=== PATIENT | male | born 1985 | race Caucasian/White ===

== ENCOUNTER 2018-02-15 12:23 | Emergency (ER) | payer MEDICAID ==
[2018-02-15 12:33] VITALS: BP 114/74
--- NOTE | 2018-02-15 12:51 | EDPHY ---
H & P Stated Complaint: Acute on Chronic Back Pain Source: Patient Exam Limitations: No limitations - Personal History Current Tetanus/Diphtheria Vaccine: No Current Tetanus Diphtheria and Acellular Pertussis (TDAP): No - Medical/Surgical History Hx Asthma: No Hx Chronic Respiratory Disease: No Hx Diabetes: No Hx Cardiac Disease: No Hx Renal Disease: No Hx Cirrhosis: No Hx Alcoholism: No Hx HIV/AIDS: No Hx Splenectomy or Spleen Trauma: No Other PMH: depression/psych, schizophrenia - Social History Smoking Status: Current every day smoker Time Seen by Provider: 02/15/18 12:51 HPI/ROS: HPI: This is a 32-year-old male who presents with Chief Complaint: Acute on chronic back pain Location: Mid to lower back Quality: Pain Duration: Worse last night and this morning Signs and Symptoms: No bleeding, no radiation, no numbness, no weakness, no tingling, no incontinence, no decreased range of motion, no swelling, + pain, no fever Timing: Acute on chronic Severity: 07/17 Context: Patient reports several months ago he was helping his friend mix and poor concrete and he was lifting heavy bags a concrete when he felt some discomfort in his mid and lower back. He reports that this lasted for several days but then slowly resolved. Patient really sports that he has been sleeping on the floor at his friend's house and believes that this may have made his back hurt. He reports mid to lower back discomfort bilaterally that is nonradiating in nature. He has not taking any ranr-bud-blspswi pain medications. He has never had x-ray images. [facility]. Denies change in bowel or bladder habits, dysuria, incontinence, radiation, paresthesias, decreased range of motion. He reports that he has no difficulty walking. Modifying Factors: None Comment: ROS: A comprehensive 10 system review of systems is otherwise negative aside from elements mentioned in the history of present illness. MEDICAL/SURGICAL/SOCIAL HISTORY: Medical history: depression/psych, schizophrenia Surgical history: Denies Social history: Current every day smoker. Denies drug use. CONSTITUTIONAL: Polite and cooperative, smells heavily of tobacco, adult white male, awake and alert, no obvious distress HEENT: Atraumatic and normocephalic. NECK: supple BACK: Mild reproducible tenderness bilateral lower thoracic and upper lumbar tenderness; No midline tenderness, no paraspinous spasm, deep tendon reflexes 2/ 2, no pain with straight leg raise, No foot drop. Achilles reflexes are equal bilaterally. Able to walk on heels and toes without difficulty. EXTREMITIES: 2/2 pulses, strength 5/5, DIP/PIP/MCP flexion/extension intact with good light touch sensation. no deformities, no clubbing, no cyanosis or edema. NEUROLOGICAL: no focal neuro deficits. GCS 15. Light touch sensation intact. SKIN: Warm and dry, no erythema. no rash. Good capillary refill. (Karen Fried) Constitutional: Initial Vital Signs Temperature (C) 36.5 C 02/15/18 12:32 Heart Rate 86 02/15/18 12:32 Respiratory Rate 16 02/15/18 12:32 Blood Pressure 114/74 02/15/18 12:32 O2 Sat (%) 95 02/15/18 12:32 O2 Delivery Mode Room Air Allergies/Adverse Reactions: No Known Allergies Allergy (Unverified 02/24/14 15:16) Home Medications: Medication Instructions Recorded Benztropine Mesylate [Cogentin] 2 mg PO 02/24/14 Paliperidone [Invega 3mg ER (RX)] 3 mg PO DAILY 02/24/14 Prolixin 1 MG (*) 08/21/17 Lidocaine 5% [Lidoderm 5% Patch] 1 ea TD DAILY PRN #6 patch 02/15/18 Medical Decision Making - Diagnostics Imaging Results: Imaging Impressions Lumbar Spine X-Ray 02/15/18 13:19 Impression: 1. Minimal scoliosis. 2. No significant underlying osseous abnormality seen. Thoracic Spine X-Ray 02/15/18 13:19 Impression: Minimal scoliosis. Otherwise, normal thoracic spine series. ED Course/Re-evaluation: I did not see this patient while he was in the emergency department. However his care was discussed with the PA while the patient was in the department. I agree with treatment plan and management (Boubacar Casillas) No neurological deficits/midline tenderness to warrant emergent MRI in the emergency room No recent trauma or injury. Thoracic and lower lumbar x-rays ordered and my read via PAC shows no significant degenerative changes, no fracture Given ibuprofen 600 mg and Lidoderm patch applied No signs of neurovascular compromise/tenting of skin/compartment syndrome/ extremities and joints examined above and below area of concern and are neurovascularly intact/cauda equina syndrome. This patient was seen under the supervision of my secondary supervising physician. I evaluated care for this patient independently. Discussed this patient with Dr. Casillas who did not see the patient. (Karen Fried) Differential Diagnosis: Back pain including but not limited to muscular pain, herniated disc, spine fracture, intra-abdominal causes and urinary tract infection. (Karen Fried) - Data Points Medications Given: Discontinued Medications Ibuprofen (Motrin) 600 mg PO EDNOW ONE Stop: 02/15/18 13:20 Last Admin: 02/15/18 13:33 Dose: 600 mg Miscellaneous Information (Patch Removal) 1 ea TD DAILY21 MARIS Stop: 08/14/18 20:59 Last Admin: 02/15/18 13:35 Dose: Not Given Miscellaneous Medication (Icy Hot Lidocaine/Menthol 4%/1% Patch) 1 patch TD EDNOW ONE Stop: 02/15/18 13:20 Last Admin: 02/15/18 13:33 Dose: 1 patch Departure - Departure Disposition: Home, Routine, Self-Care Clinical Impression: Thoracolumbar back pain Scoliosis Qualifiers: Scoliosis type: unspecified scoliosis Spinal region: thoracolumbar Qualified Code(s): M41.9 - Scoliosis, unspecified Condition: Good Instructions: Back Pain (ED), Lower Back Exercises (ED) Additional Instructions: Take Tylenol 650 mg every 4 hours and/or Ibuprofen 600 mg every 8 hours with food as needed for pain. Referrals: [facility],. [Clinic] - As per Instructions Prescriptions: Lidocaine 5% [Lidoderm 5% Patch] 1 ea TD DAILY PRN #6 patch PRN Reason: Pain, Moderate
[2018-02-15] MEDS ORDERED: IBUPROFEN 600 MG TAB PO ONE (13:19)
[2018-02-15] MEDS ORDERED: LIDOCAINE 4%/MENTHOL 1% PATCH TD ONE (13:19)
[2018-02-15] MEDS ORDERED: PATCH REMOVAL 1 EA PATCH TD SCH (21:00)
== END 2018-02-15 14:00 | disposition home or self-care (01) ==
DX: M41.9 Scoliosis, unspecified (principal); M54.6 Pain in thoracic spine; M54.5 Low back pain